=== PATIENT | female | born 1930 | race Caucasian/White ===

== ENCOUNTER 2021-07-16 10:38 | Inpatient (IN) ==
--- NOTE | 2021-07-16 10:48 | Emergency Department Note ---
Impression & Plan Cystitis, Lower extremity edema, Ambulatory dysfunction ED Provider Note NAME: PREMA ELY AGE: 89 SEX: F : 1930 ARRIVES VIA: Ambulance INFORMANT: Patient, ED PROVIDER(S): Salo Hathaway MD Chief Complaint: Shortness of breath, weakness HPI: Patient does present from home and ultimately primary care physician's office due to concern for worsening shortness of breath weakness and ambulatory dysfunction. The patient does live with her daughter who is present at bedside states that she lived there for approximately 2 to 3 years but that her ambulation is gotten worse with associated lower extremity swelling. The patient has complained of shortness of breath. Patient has decreased exercise tolerance and the patient has had some cough with laying flat. No known history of heart or lung disease. Patient is a non-smoker. Patient is vaccinated for Covid. Patient has not reportedly complained of any chest pains or abdominal pain. The patient has had a history of incontinence. Patient has not had any reported fevers chills or vomiting. Patient has been compliant with medications. The patient was seen in the outpatient setting is referred here for further evaluation treatment. ROS: See HPI for pertinent positives and negatives. A total of 10 systems were reviewed and otherwise negative. Past medical history: See below Surgical history: See below Social history: See below Physical Exam: GENERAL: Hard of hearing,NAD, [wearing a mask,] non-toxic. EYE EXAM: Normal conjunctiva. PERRL, no anisocoria and EOM's grossly intact w/o pain. NECK: Supple, no nuchal rigidity, no adenopathy, non-tender. No signs of meningismus. LUNGS: Bibasilar crackles noted. Normal chest wall mechanics. HEART: NSR, no MRG. ABDOMEN: Abdomen soft, non-tender, normo-active bowel sounds, no masses, no rebound or guarding. BACK: No CVA TTP. SKIN: Excoriated skin to the abdomen buttocks and stage I to stage II ulcerations the buttock area. UPPER EXTREMITIES: Upper extremities are grossly normal. LOWER EXTREMITIES: Left greater than right lower extremity edema. NEURO EXAM: A&O x3, cranial nerves II-XII grossly intact, normal speech, moves all 4 extremities on command w/o issue. Differential diagnoses: Infection, dehydration, metabolic abnormality, hypo/hyperglycemia, electrolyte disturbance, anemia, hypoxia, cardiac sources, intracerebral event, toxicologic, neurologic, as well as other pathologies. Course: Patient was seen and evaluated the bedside. Full history physical exam was p erformed. [EKG interpreted by me] Normal sinus rhythm, rate of 100, wide QRS, left bundle branch block pattern. Left axis deviation, no obvious sgarbossa criteria. Imaging Studies: See Below [Cardiac monitoring: An order was placed for continuous cardiac monitoring. The monitor shows a rate of 94 with sinus rhythm.] MDM: Patient was seen due to concern for ambulatory dysfunction and lower extremity edema with associated shortness of breath. Blood work was obtained. Patient has a normal white count H&H and platelet count. Kidney function is unremarkable. The patient's BNP and troponin not elevated. TSH is normal. Urinalysis does appear to be positive for infection. Covid negative. DVT ultrasound is negative. Asymmetric right lung opacities are seen on chest x-ray. Patient was treated with Rocephin. I did speak with the on-call hospitalist and the patient was admitted to the medicine service. Past Med/Surg History Medical History Acquired valgus deformity of knee Ambulatory dysfunction Lower extremity edema Neuropathy Osteoarthritis of knees, bilateral Primary hypertension Surgical History S/P appendectomy S/P cholecystectomy S/P hysterectomy Family History Other Cancer Social History Smoking Status: Never smoker Second Hand Exposure: Yes; Hx Alcohol Use: No Hx Substance Use: No marital status: / Current Living Situation: Family Feels Safe at Home: Yes Dental Care, Regularly: No Seatbelt Use: always Allergies Allergies Allergy/AdvReac Type Severity Reaction Status Date / Time lisinopril Allergy Mild cough Verified 07/16/21 13:36 Home Meds Home Medications Medication Instructions Recorded Confirmed aspirin 81 mg tablet,delayed 81 mg PO QAM 07/16/21 07/16/21 release (Adult Low Dose Aspirin) atenolol 50 mg tablet 50 mg PO QAM 07/16/21 07/16/21 calcium carbonate 500 mg calcium 500 mg PO QAM 07/16/21 07/16/21 (1,250 mg) tablet (Calcium 500) Results & Data (ED) Vital Signs Vital Signs - 24 hr 07/16/21 10:47 07/16/21 10:49 07/16/21 11:00 Temperature 36.7 C Temperature Source Oral Pulse Rate 99 H 95 H 99 H Pulse Rate [Apical] 99 H Pulse Rate from SpO2 Sensor 93 H 98 H Respiratory Rate 15 22 23 Respiratory Effort / Characteristics Non-Labored Spontaneous Respiratory Depth Normal Respiratory Pattern Regular Blood Pressure 180/106 H 175/99 H Blood Pressure [Right Arm] 175/99 H Blood Pressure Mean 130 124 Blood Pressure Mean [Right Arm] 124 Pulse Oximetry 95 96 95 Oxygen Delivery Method Room Air Sepsis Recent Fever Within 48 Hours No Sepsis New/Unexplained Change in Mental Status No Sepsis Action Taken by Nursing No Action Required 07/16/21 11:09 07/16/21 13:14 07/16/21 14:36 Temperature Temperature Source Pulse Rate 102 H Pulse Rate [Apical] 89 83 Pulse Rate from SpO2 Sensor Respiratory Rate 22 18 20 Respiratory Effort / Characteristics Respiratory Depth Respiratory Pattern Blood Pressure Blood Pressure [Right Arm] 165/87 H 163/83 H Blood Pressure Mean Blood Pressure Mean [Right Arm] 113 109 Pulse Oximetry 95 95 95 Oxygen Delivery Method Room Air Room Air Room Air Sepsis Recent Fever Within 48 Hours Sepsis New/Unexplained Change in Mental Status Sepsis Action Taken by [facility] Medications Current Medication List: was personally reviewed by me Laboratory Data Attestation: I reviewed the patient's lab results. Result diagrams: 07/16/21 11:19 07/16/21 11:19 Lab Results 07/16/21 07/16/21 07/16/21 Range/Units 11:19 11:19 11:20 WBC 8.07 (4.8-10.8) K/uL RBC 4.90 (4.2-5.4) M/uL Hgb 14.6 (12.0-16.0) g/dL Hct 43.4 (37-47) % MCV 88.6 (80-100) fL MCH 29.8 (25-34) pg MCHC 33.6 (32-36) g/dL RDW Std Deviation 42.7 (36.4-46.3) fL RDW Coeff of John Paul 13.1 (11.5-14.5) % Plt Count 202 (130-400) K/uL MPV 10.2 (7.4-10.4) fL Immature Gran % (Auto) 0.2 % Neut % (Auto) 77.2 % Lymph % (Auto) 13.4 % Hopkins % (Auto) 8.2 % Eos % (Auto) 0.9 % Baso % (Auto) 0.1 % Neut # (Auto) 6.23 (1.4-6.5) K/uL Lymph # (Auto) 1.08 L (1.2-3.4) K/uL Hopkins # (Auto) 0.66 H (0.11-0.59) K/uL Eos # (Auto) 0.07 (0-0.5) K/uL Baso # (Auto) 0.01 (0-0.2) K/uL Immature Gran # (Auto) 0.02 (0.00-0.02) K/uL Sodium 138 (136-145) mmol/L Potassium 4.0 (3.5-5.1) mmol/L Chloride 107 (98-107) mmol/L Carbon Dioxide 24 (21-32) mmol/L Anion Gap 8.0 (3-11) BUN 11 (7-18) mg/dl Creatinine 0.70 (0.6-1.2) mg/dl Est Cr Clr Drug Dosing 66.2 ml/min Est GFR ( Amer) 89.0 ml/min Est GFR (Non-Af Amer) 76.8 ml/min BUN/Creatinine Ratio 15.8 (10-20) Glucose 102 H (70-99) mg/dl Calcium 9.1 (8.5-10.1) mg/dl Magnesium 2.2 (1.8-2.4) mg/dl Total Bilirubin 0.8 (0.2-1) mg/dl AST 27 (15-37) U/L ALT 24 (12-78) U/L Alkaline Phosphatase 155 H (45-117) U/L Troponin I < 0.015 (0-0.045) ng/ml NT-Pro-B Natriuret Pep 592 (0-1800) pg/ml Total Protein 8.0 (6.4-8.2) gm/dl Albumin 3.1 L (3.4-5.0) gm/dl Globulin 4.9 H (2.5-4.0) gm/dl Albumin/Globulin Ratio 0.6 L (0.9-2) TSH 1.320 (0.300-4.500) uIu/ml Urine Color Yellow Urine Appearance Clear (Clear) Urine pH 6.5 (4.5-7.5) Ur Specific Robbins 1.008 (1.000-1.030) Urine Protein Negative (Negative) Urine Glucose (UA) Negative (Negative) Urine Ketones Negative (Negative) Urine Blood Negative (Negative) Urine Nitrite Positive A (Negative) Urine Bilirubin Negative (Negative) Urine Urobilinogen Negative (Negative) Ur Leukocyte Esterase Trace H (Negative) Urine WBC (Auto) 5-10 H (0-5) /hpf Urine RBC (Auto) 0-4 (0-4) /hpf U Hyaline Cast (Auto) 1-5 (0-5) /lpf U Epithel Cells (Auto) 10-20 H (0-5) /lpf Urine Bacteria (Auto) 2+ H (Negative) SARS-CoV-2, RNA, NAAT (NEGATIVE) 07/16/21 Range/Units 11:30 WBC (4.8-10.8) K/uL RBC (4.2-5.4) M/uL Hgb (12.0-16.0) g/dL Hct (37-47) % MCV (80-100) fL MCH (25-34) pg MCHC (32-36) g/dL RDW Std Deviation (36.4-46.3) fL RDW Coeff of John Paul (11.5-14.5) % Plt Count (130-400) K/uL MPV (7.4-10.4) fL Immature Gran % (Auto) % Neut % (Auto) % Lymph % (Auto) % Hopkins % (Auto) % Eos % (Auto) % Baso % (Auto) % Neut # (Auto) (1.4-6.5) K/uL Lymph # (Auto) (1.2-3.4) K/uL Hopkins # (Auto) (0.11-0.59) K/uL Eos # (Auto) (0-0.5) K/uL Baso # (Auto) (0-0.2) K/uL Immature Gran # (Auto) (0.00-0.02) K/uL Sodium (136-145) mmol/L Potassium (3.5-5.1) mmol/L Chloride (98-107) mmol/L Carbon Dioxide (21-32) mmol/L Anion Gap (3-11) BUN (7-18) mg/dl Creatinine (0.6-1.2) mg/dl Est Cr Clr Drug Dosing ml/min Est GFR ( Amer) ml/min Est GFR (Non-Af Amer) ml/min BUN/Creatinine Ratio (10-20) Glucose (70-99) mg/dl Calcium (8.5-10.1) mg/dl Magnesium (1.8-2.4) mg/dl Total Bilirubin (0.2-1) mg/dl AST (15-37) U/L ALT (12-78) U/L Alkaline Phosphatase (45-117) U/L Troponin I (0-0.045) ng/ml NT-Pro-B Natriuret Pep (0-1800) pg/ml Total Protein (6.4-8.2) gm/dl Albumin (3.4-5.0) gm/dl Globulin (2.5-4.0) gm/dl Albumin/Globulin Ratio (0.9-2) TSH (0.300-4.500) uIu/ml Urine Color Urine Appearance (Clear) Urine pH (4.5-7.5) Ur Specific Robbins (1.000-1.030) Urine Protein (Negative) Urine Glucose (UA) (Negative) Urine Ketones (Negative) Urine Blood (Negative) Urine Nitrite (Negative) Urine Bilirubin (Negative) Urine Urobilinogen (Negative) Ur Leukocyte Esterase (Negative) Urine WBC (Auto) (0-5) /hpf Urine RBC (Auto) (0-4) /hpf U Hyaline Cast (Auto) (0-5) /lpf U Epithel Cells (Auto) (0-5) /lpf Urine Bacteria (Auto) (Negative) SARS-CoV-2, RNA, NAAT NEGATIVE (NEGATIVE) Administered Medications Discontinued Medications Ceftriaxone Sodium (Rocephin) 2,000 mg in 70 mls @ 140 mls/hr IV NOW STA Stop: 07/16/21 13:24 Last Infusion: 07/16/21 13:46 Dose: 0 mls/hr Documented by: [id number] Admin: 07/16/21 13:13 Dose: 140 mls/hr Documented by: [id number] Imaging Data Radiologist's Impression: Chest X-Ray 07/16/21 10:58 XR chest 1V portable CLINICAL HISTORY: weakness COMPARISON STUDY: No previous studies for comparison. FINDINGS: Lung volumes are normal. There is no pneumothorax or pleural effusion. Note is made of mild cardiomegaly without evidence for pulmonary edema. There are apparent mild asymmetric opacities within the right lung. IMPRESSION: Apparent mild asymmetric right lung opacities. An infectious process cannot be excluded. Radiographic follow-up is recommended. ACT 112: Negative or not required by law. Electronically signed by: Arnold Meraz M.D. 07/16/2021 11:44 AM Venous Doppler Study 07/16/21 10:58 US venous doppler LE LT CLINICAL HISTORY: L>R LE edema COMPARISON: None available at the time of this dictation. TECHNIQUE: Bilateral lower extremity real-time compression venous ultrasound with Color Doppler imaging. Utilizing real-time ultrasonic imaging multiple real time high-resolution ultrasonic images with compression and noncompression maneuvers of the deep venous system in addition to color doppler imaging were performed from the common femoral vein through the proximal calf veins. FINDINGS: Currently there is normal compressibility of the deep venous system from the common femoral vein through the proximal calf veins. No current evidence of acute thrombosis is identified. Impression: No evidence of deep venous thrombus. ACT 112: Negative or not required by law. Electronically signed by: Mike Morales M.D. 07/16/2021 12:12 PM Discharge Plan Visit Data Chief Complaint: Cardiac Assessment ED Provider: Salo Hathaway Discharge Problem: Cystitis, Lower extremity edema, Ambulatory dysfunction Forms Stand Alone Forms: [facility] [email or web address] Prescriptions Prescriptions: No Action atenolol 50 mg tablet 50 mg PO QAM RF: 0 aspirin [Adult Low Dose Aspirin] 81 mg tablet,delayed release (DR/EC) 81 mg PO QAM RF: 0 calcium carbonate [Calcium 500] 500 mg calcium (1,250 mg) tablet 500 mg PO QAM RF: 0 Referrals Referrals: Francisca Bellamy MD [Primary Care Provider] -
[2021-07-16 11:32] LABS: Basophils # (auto) 0.01 K/uL (0-0.2); Basophils % (auto) 0.1 %; Eosinophils # (auto) 0.07 K/uL (0-0.5); Eosinophils % (auto) 0.9 %; Hematocrit (blood only) 43.4 % (37-47); Hemoglobin 14.6 g/dL (12.0-16.0); Immature Granulocytes # (auto) 0.02 K/uL (0.00-0.02); Immature Granulocytes % (auto) 0.2 %; Lymphocytes # (auto) 1.08 K/uL (1.2-3.4); Lymphocytes % (auto) 13.4 %; Mean Corpuscular Hemoglobin 29.8 pg (25-34); Mean Corpuscular Hgb Conc 33.6 g/dL (32-36); Mean Corpuscular Volume 88.6 fL (80-100); Mean Platelet Volume 10.2 fL (7.4-10.4); Monocytes # (auto) 0.66 K/uL (0.11-0.59); Monocytes % (auto) 8.2 %; Neutrophils # (auto) 6.23 K/uL (1.4-6.5); Neutrophils % (auto) 77.2 %; Platelet Count 202 K/uL (130-400); RDW Coefficient of Variation 13.1 % (11.5-14.5); RDW Standard Deviation 42.7 fL (36.4-46.3); White Blood Count 8.07 K/uL (4.8-10.8)
--- NOTE | 2021-07-16 11:45 | XRay Report ---
XR chest 1V portable CLINICAL HISTORY: weakness COMPARISON STUDY: No previous studies for comparison. FINDINGS: Lung volumes are normal. There is no pneumothorax or pleural effusion. Note is made of mild cardiomegaly without evidence for pulmonary edema. There are apparent mild asymmetric opacities with in the right lung. IMPRESSION: Apparent mild asymmetric right lung opacities. An infectious process cannot be excluded. Radiographic follow-up is recommended. ACT 112: Negative or not required by law. Electronically signed by: Arnold Meraz M.D. 07/16/2021 11:44 AM
[2021-07-16 11:49] LABS: Alanine Aminotransferase 24 U/L (12-78); Albumin Level 3.1 gm/dl (3.4-5.0); Aspartate Aminotransferase 27 U/L (15-37); BUN Creatinine Ratio 15.8 (10-20); Blood Urea Nitrogen 11 mg/dl (7-18); Calcium 9.1 mg/dl (8.5-10.1); Carbon Dioxide 24 mmol/L (21-32); Chloride 107 mmol/L (98-107); Creatinine Clr Calc Pharmacy 66.2 ml/min; Est GFR (Non-African American) 76.8 ml/min; Glucose 102 mg/dl (70-99); Magnesium 2.2 mg/dl (1.8-2.4); Sodium 138 mmol/L (136-145)
--- NOTE | 2021-07-16 12:13 | Ultrasound Report ---
US venous doppler LE LT CLINICAL HISTORY: L>R LE edema COMPARISON: None available at the time of this dictation. TECHNIQUE: Bilateral lower extremity real-time compression venous ultrasound with Color Doppler imagi ng. Utilizing real-time ultrasonic imaging multiple real time high-resolution ultrasonic images with comp ression and noncompression maneuvers of the deep venous system in addition to color doppler imaging w ere performed from the common femoral vein through the proximal calf veins. FINDINGS: Currently there is normal compressibility of the deep venous system from the common femoral vein thro ugh the proximal calf veins. No current evidence of acute thrombosis is identified. Impression: No evidence of deep venous thrombus. ACT 112: Negative or not required by law. Electronically signed by: Mike Morales M.D. 07/16/2021 12:12 PM
[2021-07-16 12:44] LABS: Albumin Globulin Ratio 0.6 (0.9-2); Alkaline Phosphatase 155 U/L (45-117); Bilirubin,Total 0.8 mg/dl (0.2-1); Globulin 4.9 gm/dl (2.5-4.0); NT Pro B Type Natriuretic Pept 592 pg/ml (0-1800); Troponin I < 0.015 ng/ml (0-0.045)
[2021-07-16 12:46] LABS: Appearance Urine Clear (Clear); Bacteria Urine Automated 2+ (Negative); Bilirubin Urine Negative (Negative); Blood Urine Negative (Negative); Color Urine Yellow; Glucose Urine UA Negative (Negative); Ketones Urine Negative (Negative); Leukocyte Esterase Urine Trace (Negative); Nitrite Urine Positive (Negative); Protein Urine Negative (Negative); RBC Urine Automated 0-4 /hpf (0-4); Specific Gravity Urine 1.008 (1.000-1.030); Urobilinogen Urine Negative (Negative); pH Urine 6.5 (4.5-7.5)
[2021-07-16] MEDS ORDERED: cefTRIAXone SODIUM 2,000 MG/70 ML BAG IV STA (12:55)
--- NOTE | 2021-07-16 14:29 | Electrocardiogram Report ---
Test Reason : Blood Pressure : / mmHG Vent. Rate : 100 BPM Atrial Rate : 100 BPM P-R Int : 188 ms QRS Dur : 134 ms QT Int : 378 ms P-R-T Axes : 037 -57 071 degrees QTc Int : 487 ms Normal sinus rhythm Possible Left atrial enlargement Left axis deviation Left bundle branch block Abnormal ECG No previous ECGs available Confirmed by Benji Graham ([id number]) on 07/16/2021 2:29:29 PM Referred By: Confirmed By:Ulises Graham
[2021-07-16] MEDS ORDERED: ACETAMINOPHEN 325 MG TAB PO PRN (15:35)
[2021-07-16] MEDS ORDERED: MAGNESIUM HYDROXIDE SUSP 30 ML UDC PO PRN (15:35)
[2021-07-16] MEDS ORDERED: ONDANSETRON INJ 2 MG/ML 2 ML VIAL IV PRN (15:35)
[2021-07-16] MEDS ORDERED: POLYETHYLENE (MIRALAX) 17 GM PACK PO PRN (15:35)
[2021-07-16] MEDS ORDERED: ALUMINUM/MAGNESIUM SUSP 30 ML UDC PO PRN (15:35)
[2021-07-16] MEDS ORDERED: FUROSEMIDE 40 MG/4 ML VIAL IV STA (16:26)
--- NOTE | 2021-07-16 16:33 | History & Physical Report ---
Date of Service July 16, 2021 Assessment & Plan (1) Lower extremity edema: Plan: - ?etiology -- renal fxn WNL, alk phos up slightly but AST/ALT/TB WNL - Obtain 2D Echo - Dose of IV Lasix 20mg x1 - Keep BLE elevated - CXR abnormal - obtain CT chest w/o contrast (2) UTI (urinary tract infection): Plan: - Empiric Rocephin - F/U urine culture (3) Pressure ulcer of buttock, unstageable: Plan: - Wound care consult placed, appreciate assistance - Frequent repositioning (4) Left bundle branch block: Plan: - R/O ACS, serial troponins - Continue ASA - Uncertain if this is new or old, no previous EKG to compare (5) Primary hypertension: Plan: - Resume Atenolol - Monitor BP (6) Ambulatory dysfunction: Plan: - PT/OT eval - Case management consult for d/c planning Plan: Obs Tele Lovenox for DVT ppx F/U labs in AM Code status: DNR/DNI Discussed above plan with patient's daughter Bria. History of Present Illness Chief Complaint: trouble walking, lower extremity edema, wounds on buttocks Primary Care Provider: Francisca Bellamy MD Ms. Kirk is a pleasant 89 yo elderly WF with a pmhx of HTN who presented to the ER today accompanied by her daughter for multiple complaints. Pt's daughter is providing history as the patient has poor insight to her current state. Daughter states that patient is presently living with her and her . Just recently able to establish care with a new PCP and she was taken there this AM. She has essentially lacked medical care since onset of COVID-19 pandemic. Daughter notes that she's had progressively worsening swelling of her bilateral LE over the past 3-6 months. She also admits to increased weight but unable to give a specific number as to increase in pounds. Pt does not lay flat but daughter notes that between transfers and when laying down she seems to be more short of breath. Pt denies chest pain or dyspnea at rest. She has not noticed any urine discoloration or odor and pt denies dysuria. Daughter also notes that the patient sits/lays all day long. She has been having increased difficulty with ambulation due to being "knock-kneed". They just recently discovered wounds on her buttocks and were concerned about how swollen her legs were. Daughter states that her legs were seeping clear discharge as well. Daughter and daughter in law are primary caretakers and are having difficulty providing the level of care that pt is requiring. They are interested in working on placement for the patient but are certainly willing to take her home if she should be discharged prior to finding a facility that can take her. Pt's only known history is HTN, she takes Atenolol. Daughter denies pt history of heart disease, stroke, hyperlipidemia, or NV. ED work up demonstrated normal wbc count, normal renal function, negative trop, and a LBBB on EKG w/o acute ischemic changes. Urine appears grossly infected (nitrite and leukocyte esterase positive) for which she was medicated with a dose of Rocephin. Pt will be hospitalized for further care. Allergies Allergy/AdvReac Type Severity Reaction Status Date / Time lisinopril Allergy Mild cough Verified 07/16/21 13:36 Home Medications Medication Instructions Recorded Confirmed Type aspirin 81 mg tablet,delayed 81 mg PO QAM 07/16/21 07/16/21 History release (Adult Low Dose Aspirin) atenolol 50 mg tablet 50 mg PO QAM 07/16/21 07/16/21 History calcium carbonate 500 mg calcium 500 mg PO QAM 07/16/21 07/16/21 History (1,250 mg) tablet (Calcium 500) Past Med/Surg History Medical History Acquired valgus deformity of knee Ambulatory dysfunction Lower extremity edema Neuropathy Osteoarthritis of knees, bilateral Primary hypertension Surgical History S/P appendectomy S/P cholecystectomy S/P hysterectomy Family History Other Cancer Social History Smoking Status: Never smoker Second Hand Exposure: Yes; Hx Alcohol Use: No Hx Substance Use: No marital status: / Current Living Situation: Family Feels Safe at Home: Yes Dental Care, Regularly: No Seatbelt Use: always Review of Systems Review of Systems: CONSTITUTIONAL: +weight gain, unable to quantify, fever and chills, fatigue, malaise, generalized weakness. HEENT: Denies changes in vision and hearing. RESPIRATORY: +dyspnea & cough with laying flat/transfers, Denies wheezing. CV: +LE edema. ?orthopnea. Denies palpitations, CP, PND. GI: Denies abdominal pain, nausea, vomiting and diarrhea. : Denies dysuria and urinary frequency, urgency, hesitancy. MUSCULOSKELETAL: Denies myalgia and joint pain. SKIN: Wounds on buttocks and rash in groin. NEUROLOGICAL: Denies headache, syncope, focal weakness, numbness, tingling. PSYCHIATRIC: Denies recent changes in mood. Denies anxiety and depression. Physical Exam Physical Exam: GENERAL: 89 yo obese elderly pleasant WF. Poor hygiene. NAD. EYES: EOMI. PERRLA. Anicteric. HENT: Moist mucous membranes. No scleral icterus. No cervical lymphadenopathy. LUNGS: Nonlabored. Bibasilar crackles. CARDIOVASCULAR: Regular rate and rhythm. No M/G/R. No JVD. ABDOMEN: Soft, obese, non-tender and non-distended. Bowel sounds normoactive x 4 quad. : Piña inserted, draining clear yellow urine. EXTREMITIES: +2 pitting edema bilaterally. Non-tender. Peripheral pulses +2/4. NEUROLOGIC: A&O x3. No focal neurological deficits. CN II-XII grossly intact. PSYCHIATRIC: Cooperative. Appropriate mood and affect. SKIN: candidal rash in groin folds. Gluteal wounds noted bilaterally. Results & Data Results & Data ([facility]) Vital Signs (Past 12 Hours) Vital Signs Temp Pulse Pulse Resp BP BP Pulse Ox 07/16/21 14:36 83 20 163/83 H 95 07/16/21 13:14 89 18 165/87 H 95 07/16/21 11:09 102 H 22 95 07/16/21 11:00 99 H 23 175/99 H 95 07/16/21 10:49 36.7 C 95 H 99 H 22 180/106 H 175/99 H 96 07/16/21 10:47 99 H 15 95 Laboratory Results Laboratory Results - last 24 hr 07/16/21 07/16/21 07/16/21 11:19 11:19 11:20 WBC 8.07 RBC 4.90 Hgb 14.6 Hct 43.4 MCV 88.6 MCH 29.8 MCHC 33.6 RDW Std Deviation 42.7 RDW Coeff of [place] 13.1 Plt Count 202 MPV 10.2 Immature Gran % (Auto) 0.2 Neut % (Auto) 77.2 Lymph % (Auto) 13.4 [place] % (Auto) 8.2 Eos % (Auto) 0.9 Baso % (Auto) 0.1 Neut # (Auto) 6.23 Lymph # (Auto) 1.08 L [place] # (Auto) 0.66 H Eos # (Auto) 0.07 Baso # (Auto) 0.01 Immature Gran # (Auto) 0.02 Sodium 138 Potassium 4.0 Chloride 107 Carbon Dioxide 24 Anion Gap 8.0 BUN 11 Creatinine 0.70 Est Cr Clr Drug Dosing 66.2 Est GFR ( Amer) 89.0 Est GFR (Non-Af Amer) 76.8 BUN/Creatinine Ratio 15.8 Glucose 102 H Calcium 9.1 Magnesium 2.2 Total Bilirubin 0.8 AST 27 ALT 24 Alkaline Phosphatase 155 H Troponin I < 0.015 NT-Pro-B Natriuret Pep 592 Total Protein 8.0 Albumin 3.1 L Globulin 4.9 H Albumin/Globulin Ratio 0.6 L TSH 1.320 Urine Color Yellow Urine Appearance Clear Urine pH 6.5 Ur Specific [place] 1.008 Urine Protein Negative Urine Glucose (UA) Negative Urine Ketones Negative Urine Blood Negative Urine Nitrite Positive A Urine Bilirubin Negative Urine Urobilinogen Negative Ur Leukocyte Esterase Trace H Urine WBC (Auto) 5-10 H Urine RBC (Auto) 0-4 U Hyaline Cast (Auto) 1-5 U Epithel Cells (Auto) 10-20 H Urine Bacteria (Auto) 2+ H SARS-CoV-2, RNA, NAAT negative Diagnostic Findings Chest X-Ray 07/16/21 10:58 XR chest 1V portable CLINICAL HISTORY: weakness COMPARISON STUDY: No previous studies for comparison. FINDINGS: Lung volumes are normal. There is no pneumothorax or pleural effusion. Note is made of mild cardiomegaly without evidence for pulmonary edema. There are apparent mild asymmetric opacities within the right lung. IMPRESSION: Apparent mild asymmetric right lung opacities. An infectious process cannot be excluded. Radiographic follow-up is recommended. ACT 112: Negative or not required by law. Electronically signed by: Arnold Meraz M.D. 07/16/2021 11:44 AM Venous Doppler Study 07/16/21 10:58 US venous doppler LE LT CLINICAL HISTORY: L>R LE edema COMPARISON: None available at the time of this dictation. TECHNIQUE: Bilateral lower extremity real-time compression venous ultrasound with Color Doppler imaging. Utilizing real-time ultrasonic imaging multiple real time high-resolution ultrasonic images with compression and noncompression maneuvers of the deep venous system in addition to color doppler imaging were performed from the common femoral vein through the proximal calf veins. FINDINGS: Currently there is normal compressibility of the deep venous system from the common femoral vein through the proximal calf veins. No current evidence of acute thrombosis is identified. Impression: No evidence of deep venous thrombus. ACT 112: Negative or not required by law. Electronically signed by: Mike Morales M.D. 07/16/2021 12:12 PM ECG Additional Comments: NSR, LBBB, Left axis deviation Code Status & VTE Plan Code Status DNR/DNI VTE Prophylaxis Plan VTE Prophylaxis will be ordered: Yes Supervising Physician Co-Signing Physician Notes Attending note: patient seen and examined with Claritza FELDMAN. I agree with her assessment and plan, history, ROS, examination. I have reviewed the labs and imaging. patient is pleasant, resting in bed, daughter at the bedside discussed plan with them, all questions answered - Lower extremity edema: appears to be lymphedema plus some edema, per daughter legs have been swollen for years, more recently worse check echo, no proteinuria, see how she responds to Lasix - LBBB: unsure if old or new, no complaints of chest pain, observe on tele, cycle troponin, echo - Buttocks wounds: consult wound care will need PT/OT, family unsure if they can care for her at home, consult CM PG Care Time/CCT Total # of Minutes Spent Total Time Spent with Patient: Total time spent is greater than 50% in coordination of care (as documented) at patient's floor/unit and/or counseling patient: Coding Level of Care Code New Pt INT OBSERVATION CARE 50M LVL 2 Patient Type New Diagnoses UTI (urinary tract infection) N39.0 Pressure ulcer of buttock, unstageable L89.300 Primary hypertension I10 Ambulatory dysfunction R26.2 Lower extremity edema R60.0 Left bundle branch block I44.7
--- NOTE | 2021-07-16 17:48 | CT Scan Report ---
CT SCAN OF THE CHEST WITHOUT IV CONTRAST CLINICAL HISTORY: Abnormal chest x-ray. Abnormal physical examination findings. COMPARISON STUDY: Chest x-ray dated 07/16/2021. TECHNIQUE: CT scan of the thorax was performed from the thoracic inlet to the upper abdomen. Images are reviewed in the axial, sagittal, and coronal planes. IV contrast was not administered for this ex amination as per the referring clinician. A dose lowering technique was utilized adhering to the [facility] of [place]. The examination is degraded by motion artifact, as well as by streak artifact from the arms which could not be elevated above the chest. CT DOSE: 1092.19 mGy.cm FINDINGS: Thyroid: Normal in size and heterogeneous in attenuation. Thoracic aorta: There is atherosclerotic calcification of the thoracic aorta. There is mild aneurysma l dilatation of the ascending thoracic aorta which measures up to 4.3 cm in diameter. The remainder o f the thoracic aorta is normal in caliber, and the arch demonstrates standard 3-vessel anatomy. Heart: The heart is enlarged and without pericardial effusion. The coronary arteries are densely calc ified. Lungs and pleural spaces: Evaluation of the lung parenchyma is degraded by motion artifact. Scarring/ atelectasis is noted at the lung bases. There is no airspace consolidation typical for pneumonia or p leural effusion. The trachea and central airways are clear. Mediastinum: There is no mediastinal lymphadenopathy. Trista: Not well assessed without IV contrast. Axillae: There is no axillary lymphadenopathy. Upper abdomen: The liver is cirrhotic in morphology and heterogeneous in attenuation. There is hypert rophy of the left lobe and nodularity of the surface contour. 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 A 3.2 cm right adrenal nodule meets criteria for a fat-containing adenoma. Skeletal structures: The skeletal structures are osteopenic. Degenerative change and hyperkyphosis ar e noted in the thoracic spine. Arthritic change is seen in the shoulders. No lytic or blastic bony le sions are seen. IMPRESSION: 1. Cardiomegaly with no acute cardiopulmonary abnormality. 2. There is mild aneurysmal minimal dilatation of the ascending thoracic aorta which measures up to 4 .3 cm in diameter. 3. Cirrhotic liver morphology. 4. Additional findings as above. ACT 112: Negative or not required by law. Electronically signed by: Ash Rutherford M.D. 07/16/2021 5:46 PM
[2021-07-16] MEDS: ENOXAPARIN INJ 60 MG/0.6 ML SYR SQ SCH (19:16)
[2021-07-17] MEDS ORDERED: FUROSEMIDE 40 MG/4 ML VIAL IV ONE (08:37)
[2021-07-17] MEDS: ASPIRIN 81 MG ECTAB PO SCH (09:18)
[2021-07-17] MEDS: CALCIUM CARBONATE 1250MG TAB PO SCH (09:18)
[2021-07-17] MEDS: ATENOLOL 50 MG TABLET PO SCH (09:18)
[2021-07-17 09:25] LABS: Albumin Level 2.7 gm/dl (3.4-5.0); BUN Creatinine Ratio 15.4 (10-20); Calcium 8.9 mg/dl (8.5-10.1); Creatinine Clr Calc Pharmacy 45.9 ml/min; Est GFR (African American) 57.2 ml/min; Est GFR (Non-African American) 49.3 ml/min; Potassium 3.9 mmol/L (3.5-5.1)
[2021-07-17 09:28] LABS: Albumin Globulin Ratio 0.5 (0.9-2); Bilirubin,Total 0.7 mg/dl (0.2-1); Total Protein 7.7 gm/dl (6.4-8.2)
--- NOTE | 2021-07-17 12:23 | XCELERA ---
[id number]
[2021-07-17] MEDS: cefTRIAXone SODIUM 2,000 MG in DEXTROSE 5% 50 ML IV SCH (13:01)
--- NOTE | 2021-07-17 15:25 | Hospitalist Progress Note ---
Date of Service July 17, 2021 Assessment & Plan (1) Lower extremity edema: Plan: Acute on chronic - Suspect mildly worse d/t poor mobility - Given dose of IV Lasix x 2, some improvement in edema noted - Keep elevated - Consider OT eval for lymphedema therapy (2) UTI (urinary tract infection): Plan: - Empiric Rocephin - Prelim culture growing GN organism - Await final C&S and tailor abx accordingly (3) Buttock wound: Plan: - Wounds secondary to excessive moisture - Consult wound care -- appreciate assistance - Clean area/dry thoroughly, apply powder/ointment as directed by wound care (4) Left bundle branch block: Plan: - ACS ruled out, trops negative - Continue ASA - Uncertain if this is new or old, no previous EKG to compare - D/C tele (5) Primary hypertension: Plan: - Resume Atenolol - Monitor BP (6) Ambulatory dysfunction: Plan: - PT/OT eval - Case management consult for d/c planning Plan: Make full admit Lovenox for DVT ppx F/U labs in AM Code status: DNR/DNI Will update patient's daughter, Bria at bedside. Admission and Anticipated Discharge Date Admission Date: July 17, 2021 Subjective Mrs. Kirk seen on rounds this morning. She is resting comfortably in bed and offers no complaints. She is difficult to communicate with as she is [place]. Pt hospitalized yesterday for multiple issues including increasing LE edema, UTI, and wounds on buttocks. No issues verbalized by RN. She was given Lasix y with some response. Additional dose order this AM. Family having a difficult time caring for her at home. Review of Systems Review of Systems: CONSTITUTIONAL: denies fever and chills, fatigue, malaise, generalized weakness. HEENT: Denies changes in vision and hearing. RESPIRATORY: +dyspnea & cough with laying flat/transfers, Denies wheezing. CV: +LE edema. ?orthopnea. Denies palpitations, CP, PND. GI: Denies abdominal pain, nausea, vomiting and diarrhea. : +incontinent. Denies dysuria and urinary frequency, urgency, hesitancy. MUSCULOSKELETAL: Denies myalgia and joint pain. SKIN: Wounds on buttocks and rash in groin. NEUROLOGICAL: Denies headache, syncope, focal weakness, numbness, tingling. PSYCHIATRIC: Denies recent changes in mood. Denies anxiety and depression. Physical Exam Physical Exam: GENERAL: 89 yo obese elderly pleasant WF. Poor hygiene. NAD. EYES: EOMI. PERRLA. Anicteric. HENT: Moist mucous membranes. No scleral icterus. No cervical lymphadenopathy. LUNGS: Nonlabored. Bibasilar crackles. CARDIOVASCULAR: Regular rate and rhythm. No M/G/R. No JVD. ABDOMEN: Soft, obese, non-tender and non-distended. Bowel sounds normoactive x 4 quad. : Piña inserted, draining clear yellow urine. EXTREMITIES: +2 pitting edema bilaterally. Non-tender. Peripheral pulses +2/4. NEUROLOGIC: A&O x3. No focal neurological deficits. CN II-XII grossly intact. PSYCHIATRIC: Cooperative. Appropriate mood and affect. SKIN: candidal rash in groin folds. Gluteal wounds noted bilaterally. Results & Data Results & Data ([facility]) Vital Signs (Past 12 Hours) Vital Signs Temp Pulse Pulse Resp BP Pulse Ox 07/17/21 15:12 37.4 C 69 18 124/65 92 07/17/21 11:12 36.5 C 71 18 126/65 94 07/17/21 08:09 96 H 07/17/21 07:36 36.9 C 95 H 20 145/70 H 93 07/17/21 03:25 36.7 C 120 H 22 94 Laboratory Results 07/16/21 11:19 07/17/21 08:[address] 07/16/21 16:33 CT SCAN OF THE CHEST WITHOUT IV CONTRAST CLINICAL HISTORY: Abnormal chest x-ray. Abnormal physical examination findings. COMPARISON STUDY: Chest x-ray dated 07/16/2021. TECHNIQUE: CT scan of the thorax was performed from the thoracic inlet to the upper abdomen. Images are reviewed in the axial, sagittal, and coronal planes. IV contrast was not administered for this examination as per the referring clinician. A dose lowering technique was utilized adhering to the principles of [place]. The examination is degraded by motion artifact, as well as by streak artifact from the arms which could not be elevated above the chest. CT DOSE: 1092.19 mGy.cm FINDINGS: Thyroid: Normal in size and heterogeneous in attenuation. Thoracic aorta: There is atherosclerotic calcification of the thoracic aorta. There is mild aneurysmal dilatation of the ascending thoracic aorta which measures up to 4.3 cm in diameter. The remainder of the thoracic aorta is normal in caliber, and the arch demonstrates standard 3-vessel anatomy. Heart: The heart is enlarged and without pericardial effusion. The coronary arteries are densely calcified. Lungs and pleural spaces: Evaluation of the lung parenchyma is degraded by motion artifact. Scarring/atelectasis is noted at the lung bases. There is no airspace consolidation typical for pneumonia or pleural effusion. The trachea and central airways are clear. Mediastinum: There is no mediastinal lymphadenopathy. Trista: Not well assessed without IV contrast. Axillae: There is no axillary lymphadenopathy. Upper abdomen: The liver is cirrhotic in morphology and heterogeneous in attenuation. There is hypertrophy of the left lobe and nodularity of the surface contour. 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 A 3.2 cm right adrenal nodule meets criteria for a fat-containing adenoma. Skeletal structures: The skeletal structures are osteopenic. Degenerative change and hyperkyphosis are noted in the thoracic spine. Arthritic change is seen in the shoulders. No lytic or blastic bony lesions are seen. IMPRESSION: 1. Cardiomegaly with no acute cardiopulmonary abnormality. 2. There is mild aneurysmal minimal dilatation of the ascending thoracic aorta which measures up to 4.3 cm in diameter. 3. Cirrhotic liver morphology. 4. Additional findings as above. ACT 112: Negative or not required by law. Electronically signed by: Ash Rutherford M.D. 07/16/2021 5:46 PM PG Care Time/CCT Total # of Minutes Spent Total Time Spent with Patient: Total time spent is greater than 50% in coordination of care (as documented) at patient's floor/unit and/or counseling patient: Coding Level of Care Code 37622 Subseq Hosp Care Lvl 2 Diagnoses Lower extremity edema R60.0 UTI (urinary tract infection) N39.0 Left bundle branch block I44.7 Primary hypertension I10 Ambulatory dysfunction R26.2 Buttock wound S31.809A
[2021-07-17] MEDS: ENOXAPARIN INJ 60 MG/0.6 ML SYR SQ SCH (17:06)
[2021-07-17] MEDS: MICONAZOLE NITRATE POWDER 43 GM EXT PRN (23:17)
[2021-07-18 08:15] LABS: Albumin Level 2.5 gm/dl (3.4-5.0); BUN Creatinine Ratio 30.5 (10-20); Calcium 8.6 mg/dl (8.5-10.1); Creatinine Clr Calc Pharmacy 53.9 ml/min; Est GFR (African American) 69.4 ml/min; Est GFR (Non-African American) 59.9 ml/min; Potassium 3.5 mmol/L (3.5-5.1)
[2021-07-18 08:18] LABS: Albumin Globulin Ratio 0.6 (0.9-2); Bilirubin,Total 0.7 mg/dl (0.2-1); Globulin 4.3 gm/dl (2.5-4.0); Total Protein 6.8 gm/dl (6.4-8.2)
[2021-07-18] MEDS: CALCIUM CARBONATE 1250MG TAB PO SCH (09:35)
[2021-07-18] MEDS: ASPIRIN 81 MG ECTAB PO SCH (09:35)
[2021-07-18] MEDS: ATENOLOL 50 MG TABLET PO SCH (09:35)
--- NOTE | 2021-07-18 10:44 | Hospitalist Progress Note ---
Date of Service July 18, 2021 Assessment & Plan (1) Lower extremity edema: Plan: Acute on chronic - Suspect mildly worse d/t poor mobility - Given dose of IV Lasix x 2, some improvement in edema noted - Keep elevated - Consider OT eval for lymphedema therapy (2) UTI (urinary tract infection): Plan: - E. coli with sensitivities to all except Ampicillin - Continue Rocephin - Uncomplicated, subsequently 3-5 days of treatment is sufficient (3) Buttock wound: Plan: - Wounds secondary to excessive moisture - Consult wound care -- appreciate assistance - Clean area/dry thoroughly, apply powder/ointment as directed by wound care (4) Left bundle branch block: Plan: - ACS ruled out, trops negative - Continue ASA - Uncertain if this is new or old, no previous EKG to compare - D/C tele (5) Primary hypertension: Plan: - Continue Atenolol - Monitor BP (6) Ambulatory dysfunction: Plan: - PT/OT eval - Case management consulted for d/c planning - Therapy recommending SNF Plan: Lovenox for DVT ppx F/U labs in AM D/C barber Code status: DNR/DNI Will update patient's daughter, Bria. Admission and Anticipated Discharge Date Admission Date: July 17, 2021 [address]ive Mrs. Kirk seen on rounds this morning. She is resting comfortably in bed and offers no complaints. She is difficult to communicate with as she is [place]. Pt hospitalized yesterday for multiple issues including increasing LE edema, UTI, and wounds on buttocks. No issues verbalized by RN. Family having a difficult time caring for her at home, case management on board. Review of Systems Review of Systems: CONSTITUTIONAL: denies fever and chills, fatigue, malaise, generalized weakness. HEENT: Denies changes in vision and hearing. RESPIRATORY: Denies SOB at rest, cough, wheezing. CV: +LE edema (chronic). Denies palpitations, CP, PND. GI: Denies abdominal pain, nausea, vomiting and diarrhea. : +incontinent. Denies dysuria and urinary frequency, urgency, hesitancy. MUSCULOSKELETAL: Denies myalgia and joint pain. SKIN: Wounds on buttocks and rash in groin. NEUROLOGICAL: Denies headache, syncope, focal weakness, numbness, tingling. PSYCHIATRIC: Denies recent changes in mood. Denies anxiety and depression. Physical Exam Physical Exam: GENERAL: 89 yo obese elderly pleasant WF. Poor hygiene. NAD. LUNGS: Nonlabored. No JVD. Fine bibasilar crackles. CARDIOVASCULAR: Regular rate and rhythm. No M/G/R. No JVD. ABDOMEN: Soft, obese, non-tender and non-distended. Bowel sounds normoactive x 4 quad. : Barber inserted, draining clear yellow urine. EXTREMITIES: +2 pitting edema bilaterally. Non-tender. Peripheral pulses +2/4. NEUROLOGIC: A&O x3. PSYCHIATRIC: Cooperative. Appropriate mood and affect. SKIN: candidal rash in groin folds. Gluteal wounds noted bilaterally. dry/flaking skin noted on hairline/around eyebrows c/w seborrheic dermatitis. Results & Data Results & Data ([facility]) Vital Signs (Past 12 Hours) Vital Signs Temp Pulse Resp BP Pulse Ox 07/18/21 07:00 36.4 C L 63 18 150/74 H 95 07/17/21 22:55 36.5 C 68 20 172/73 H 93 Laboratory Results 07/16/21 11:19 07/18/21 07:36 Diagnostic Findings Echocardiogram 07/17/21 LV systolic function is normal. There is mild concentric LVH Borderline left atrial enlargement There is mild to moderate mitral annular calcification RVSP elevated at 30-40 mmHg PG Care Time/CCT Total # of Minutes Spent Total Time Spent with Patient: Total time spent is greater than 50% in coordination of care (as documented) at patient's floor/unit and/or counseling patient: Coding Level of Care Code 59648 Subseq Hosp Care Lvl 2 Diagnoses Lower extremity edema R60.0 UTI (urinary tract infection) N39.0 Buttock wound S31.809A Left bundle branch block I44.7 Primary hypertension I10 Ambulatory dysfunction R26.2
[2021-07-18] MEDS: cefTRIAXone SODIUM 2,000 MG in DEXTROSE 5% 50 ML IV SCH (12:29)
[2021-07-18] MEDS: ENOXAPARIN INJ 60 MG/0.6 ML SYR SQ SCH (17:23)
[2021-07-19] MEDS: CALCIUM CARBONATE 1250MG TAB PO SCH (08:13)
[2021-07-19] MEDS: ATENOLOL 50 MG TABLET PO SCH (08:13)
[2021-07-19] MEDS: ASPIRIN 81 MG ECTAB PO SCH (08:14)
--- NOTE | 2021-07-19 09:00 | Hospitalist Progress Note ---
Date of Service July 19, 2021 Assessment & Plan (1) Lower extremity edema: Plan: Acute on chronic - Suspect mildly worse d/t poor mobility - Given dose of IV Lasix x 2, some improvement in edema noted - Keep elevated - Consider OT eval for lymphedema therapy (2) UTI (urinary tract infection): Plan: - E. coli with sensitivities to all except Ampicillin - Continue Rocephin - Uncomplicated, subsequently 3-5 days of treatment is sufficient (3) Buttock wound: Plan: - Wounds secondary to excessive moisture - Consult wound care -- appreciate assistance - Clean area/dry thoroughly, apply powder/ointment as directed by wound care (4) Left bundle branch block: Plan: - ACS ruled out, trops negative - Continue ASA - Uncertain if this is new or old, no previous EKG to compare (5) Primary hypertension: Plan: - Currently on Atenolol which was held this AM d/t bradycardia - Monitor HR and BP. If HR improves later this AM or early afternoon, can give Atenolol at that time - If HR remains 50s-60s may need to consider changing Atenolol to MOLLY or ARB (6) Ambulatory dysfunction: Plan: - Continue PT/OT - Case management consulted for d/c planning - Therapy recommending SNF Plan: Lovenox for DVT ppx No labs needed at present as pt is stable w/o acute issues Code status: DNR/DNI Will continue to update patient's daughter, Bria. Admission and Anticipated Discharge Date Admission Date: July 17, 2021 [address] Mrs. Kirk seen on rounds this morning. She is resting comfortably in bed and offers no complaints. She is difficult to communicate with as she is [place]. Pt hospitalized yesterday for multiple issues including increasing LE edema, UTI, and wounds on buttocks. Family having a difficult time caring for her at home, case management on board, referral sent to [facility]. Pt is vaccinated. Piña removed yesterday and she is voiding without issue. Her RN noted this AM that her Atenolol was held d/t HR of 54. Review of Systems Review of Systems: CONSTITUTIONAL: denies fever and chills, fatigue, malaise, generalized weakness. HEENT: Denies changes in vision and hearing. RESPIRATORY: Denies SOB at rest, cough, wheezing. CV: +LE edema (chronic). Denies palpitations, CP, PND. GI: Denies abdominal pain, nausea, vomiting and diarrhea. : +incontinent. Denies dysuria and urinary frequency, urgency, hesitancy. MUSCULOSKELETAL: Denies myalgia and joint pain. SKIN: Wounds on buttocks and rash in groin. NEUROLOGICAL: Denies headache, syncope, focal weakness, numbness, tingling. PSYCHIATRIC: Denies recent changes in mood. Denies anxiety and depression. Physical Exam Physical Exam: GENERAL: 89 yo obese elderly pleasant WF. Poor hygiene. NAD. LUNGS: Nonlabored. No JVD. Fine bibasilar crackles. CARDIOVASCULAR: Regular rate and rhythm. No M/G/R. No JVD. ABDOMEN: Soft, obese, non-tender and non-distended. Bowel sounds normoactive x 4 quad. EXTREMITIES: +2 pitting edema bilaterally. Non-tender. Peripheral pulses +2/4. NEUROLOGIC: A&O x3. PSYCHIATRIC: Cooperative. Appropriate mood and affect. SKIN: candidal rash in groin folds. Gluteal wounds noted bilaterally. dry/flaking skin noted on hairline/around eyebrows c/w seborrheic dermatitis. Results & Data Results & Data ([facility]) Vital Signs (Past 12 Hours) Vital Signs Temp Pulse Resp BP BP Pulse Ox 07/19/21 07:23 36.9 C 54 L 18 167/84 H 91 07/18/21 23:00 37.4 C 63 20 138/71 92 PG Care Time/CCT Total # of Minutes Spent Total Time Spent with Patient: Total time spent is greater than 50% in coordination of care (as documented) at patient's floor/unit and/or counseling patient: Coding Level of Care Code 89637 Subseq Hosp Care Lvl 2 Diagnoses Lower extremity edema R60.0 UTI (urinary tract infection) N39.0 Buttock wound S31.809A Left bundle branch block I44.7 Primary hypertension I10 Ambulatory dysfunction R26.2
[2021-07-19] MEDS: cefTRIAXone SODIUM 2,000 MG in DEXTROSE 5% 50 ML IV SCH (13:55)
[2021-07-19] MEDS: MICONAZOLE NITRATE POWDER 43 GM EXT PRN (15:10)
[2021-07-19] MEDS: ENOXAPARIN INJ 60 MG/0.6 ML SYR SQ SCH (17:49)
[2021-07-20] MEDS: ATENOLOL 50 MG TABLET PO SCH (07:58)
[2021-07-20] MEDS: ASPIRIN 81 MG ECTAB PO SCH (07:58)
[2021-07-20] MEDS: CALCIUM CARBONATE 1250MG TAB PO SCH (10:52)
--- NOTE | 2021-07-20 16:27 | Hospitalist Progress Note ---
Date of Service July 20, 2021 Assessment & Plan (1) Lower extremity edema: Plan: Acute on chronic - Suspect mildly worse d/t poor mobility - Given dose of IV Lasix x 2, some improvement in edema noted - Keep elevated - Consider OT eval for lymphedema therapy (2) UTI (urinary tract infection): Plan: - E. coli with sensitivities to all except Ampicillin - Continue Rocephin - Uncomplicated, completed 4 days of Rocephin (3) Buttock wound: Plan: - Wounds secondary to excessive moisture - Consult wound care -- appreciate assistance - Clean area/dry thoroughly, apply powder/ointment as directed by wound care (4) Left bundle branch block: Plan: - ACS ruled out, trops negative - Continue ASA - Uncertain if this is new or old, no previous EKG to compare (5) Primary hypertension: Plan: - Currently on Atenolol which was held this AM d/t bradycardia - Monitor HR and BP. If HR improves later this AM or early afternoon, can give Atenolol at that time - If HR remains 50s-60s may need to consider changing Atenolol to MOLLY or ARB (6) Ambulatory dysfunction: Plan: - Continue PT/OT - Case management consulted for d/c planning - Therapy recommending SNF Plan: Lovenox for DVT ppx No labs needed at present as pt is stable w/o acute issues Code status: DNR/DNI Spoke with daughter and Bria VERA. Explained that since [facility] has no beds, will have to begin reaching out to other facilities outside of the area. Wherever can take her first is where she will have to go. They can look at transferring to [facility] at later time when a bed becomes available. Made CM aware. They will begin sending referrals on Friday. Admission and Anticipated Discharge Date Admission Date: July 17, 2021 [address] Mrs. Kirk seen on rounds this morning. She is resting comfortably in bed and offers no complaints. She is difficult to communicate with as she is [place]. Pt hospitalized yesterday for multiple issues including increasing LE edema, UTI, and wounds on buttocks. Family having a difficult time caring for her at home, case management on board, referral sent to [facility]. Pt is vaccinated. At this point, no beds available at [facility] and don't anticipate anything over the weekend. Daughter states she cannot safely take her home. No issues verbalized by nursing staff. Review of Systems Review of Systems: CONSTITUTIONAL: denies fever and chills, fatigue, malaise, generalized weakness. HEENT: Denies changes in vision and hearing. RESPIRATORY: Denies SOB at rest, cough, wheezing. CV: +LE edema (chronic). Denies palpitations, CP, PND. GI: Denies abdominal pain, nausea, vomiting and diarrhea. : +incontinent. Denies dysuria and urinary frequency, urgency, hesitancy. MUSCULOSKELETAL: Denies myalgia and joint pain. SKIN: Wounds on buttocks and rash in groin. NEUROLOGICAL: Denies headache, syncope, focal weakness, numbness, tingling. PSYCHIATRIC: Denies recent changes in mood. Denies anxiety and depression. Physical Exam Physical Exam: GENERAL: 89 yo obese elderly pleasant WF. Poor hygiene. NAD. LUNGS: Nonlabored. No JVD. Fine bibasilar crackles. CARDIOVASCULAR: Regular rate and rhythm. No M/G/R. No JVD. ABDOMEN: Soft, obese, non-tender and non-distended. Bowel sounds normoactive x 4 quad. EXTREMITIES: +2 pitting edema bilaterally. Non-tender. Peripheral pulses +2/4. NEUROLOGIC: A&O x3. PSYCHIATRIC: Cooperative. Appropriate mood and affect. SKIN: candidal rash in groin folds. Gluteal wounds noted bilaterally. dry/flaking skin noted on hairline/around eyebrows c/w seborrheic dermatitis. Results & Data Results & Data ([facility]) Vital Signs (Past 12 Hours) Vital Signs Temp Pulse Resp BP Pulse Ox 07/20/21 16:05 36.2 C L 62 16 151/75 H 95 07/20/21 10:56 147/74 H 07/20/21 07:50 36.5 C 95 H 16 190/74 H 95 PG Care Time/CCT Total # of Minutes Spent Total Time Spent with Patient: Total time spent is greater than 50% in coordination of care (as documented) at patient's floor/unit and/or counseling patient: Coding Level of Care Code 85157 Subseq Hosp Care Lvl 1 Diagnoses Lower extremity edema R60.0 UTI (urinary tract infection) N39.0 Buttock wound S31.809A Left bundle branch block I44.7 Primary hypertension I10 Ambulatory dysfunction R26.2
[2021-07-20] MEDS: ENOXAPARIN INJ 60 MG/0.6 ML SYR SQ SCH (18:24)
[2021-07-21] MEDS: ATENOLOL 50 MG TABLET PO SCH (07:52)
[2021-07-21] MEDS: ASPIRIN 81 MG ECTAB PO SCH (07:53)
[2021-07-21] MEDS: CALCIUM CARBONATE 1250MG TAB PO SCH (07:53)
--- NOTE | 2021-07-21 08:24 | Hospitalist Progress Note ---
Date of Service July 21, 2021 Assessment & Plan (1) Lower extremity edema: Plan: Acute on chronic - Suspect mildly worse d/t poor mobility - Given dose of IV Lasix x 2, some improvement in edema noted - Keep elevated - Consider OT eval for lymphedema therapy (2) UTI (urinary tract infection): Plan: - E. coli with sensitivities to all except Ampicillin - Uncomplicated, completed 4 days of Rocephin (3) Buttock wound: Plan: - Wounds secondary to excessive moisture - Consult wound care -- appreciate assistance - Clean area/dry thoroughly, apply powder/ointment as directed by wound care (4) Left bundle branch block: Plan: - ACS ruled out, trops negative - Continue ASA - Uncertain if this is new or old, no previous EKG to compare (5) Primary hypertension: Plan: - Currently on Atenolol which was held this AM d/t bradycardia - Monitor HR and BP. If HR improves later this AM or early afternoon, can give Atenolol at that time - If HR remains 50s-60s may need to consider changing Atenolol to MOLLY or ARB (6) Ambulatory dysfunction: Plan: - Continue PT/OT - Case management consulted for d/c planning - Therapy recommending SNF Plan: Lovenox for DVT ppx No labs needed at present as pt is stable w/o acute issues Code status: DNR/DNI Spoke with daughter and Bria VERA on 07/20. Explained that since [facility] has no beds, will have to begin reaching out to other facilities outside of the area. Wherever can take her first is where she will have to go. They can look at transferring to [facility] at later time when a bed becomes available. Made CM aware. They will begin sending referrals on Friday. Admission and Anticipated Discharge Date Admission Date: July 17, 2021 [address] Mrs[address] Kirk seen on rounds this morning. She is resting comfortably in bed and offers no complaints. She is difficult to communicate with as she is [place]. Pt hospitalized yesterday for multiple issues including increasing LE edema, UTI, and wounds on buttocks. Family having a difficult time caring for her at home, case management on board, referral sent to [facility]. Pt is vaccinated. At this point, no beds available at [facility] and don't anticipate anything over the weekend. Daughter states she cannot safely take her home. Additional referrals to be sent out on Friday by case management. No issues verbalized by nursing staff. Review of Systems Review of Systems: CONSTITUTIONAL: denies fever and chills, fatigue, malaise, generalized weakness. HEENT: Denies changes in vision and hearing. RESPIRATORY: Denies SOB at rest, cough, wheezing. CV: +LE edema (chronic). Denies palpitations, CP, PND. GI: Denies abdominal pain, nausea, vomiting and diarrhea. : +incontinent. Denies dysuria and urinary frequency, urgency, hesitancy. MUSCULOSKELETAL: Denies myalgia and joint pain. SKIN: Wounds on buttocks and rash in groin. NEUROLOGICAL: Denies headache, syncope, focal weakness, numbness, tingling. PSYCHIATRIC: Denies recent changes in mood. Denies anxiety and depression. Physical Exam Physical Exam: GENERAL: 89 yo obese elderly pleasant WF. Poor hygiene. NAD. LUNGS: Nonlabored. No JVD. Fine bibasilar crackles. CARDIOVASCULAR: Regular rate and rhythm. No M/G/R. No JVD. ABDOMEN: Soft, obese, non-tender and non-distended. Bowel sounds normoactive x 4 quad. EXTREMITIES: +2 pitting edema bilaterally. Non-tender. Peripheral pulses +2/4. NEUROLOGIC: A&O x3. PSYCHIATRIC: Cooperative. Appropriate mood and affect. SKIN: candidal rash in groin folds. Gluteal wounds noted bilaterally. dry/flaking skin noted on hairline/around eyebrows c/w seborrheic dermatitis. Results & Data Results & Data ([facility]) Vital Signs (Past 12 Hours) Vital Signs Temp Pulse Resp BP Pulse Ox 07/21/21 07:41 36.6 C 106 H 17 183/76 H 99 07/20/21 23:22 36.6 C 60 18 170/76 H 94 Laboratory Results No labs PG Care Time/CCT Total # of Minutes Spent Total Time Spent with Patient: Total time spent is greater than 50% in coordination of care (as documented) at patient's floor/unit and/or counseling patient: Coding Level of Care Code 34383 Subseq Hosp Care Lvl 1 Diagnoses Lower extremity edema R60.0 UTI (urinary tract infection) N39.0 Buttock wound S31.809A Left bundle branch block I44.7 Primary hypertension I10 Ambulatory dysfunction R26.2
[2021-07-21] MEDS: ENOXAPARIN INJ 60 MG/0.6 ML SYR SQ SCH (17:53)
[2021-07-22] MEDS: ASPIRIN 81 MG ECTAB PO SCH (10:28)
[2021-07-22] MEDS: ATENOLOL 50 MG TABLET PO SCH (10:28)
[2021-07-22] MEDS: CALCIUM CARBONATE 1250MG TAB PO SCH (10:28)
--- NOTE | 2021-07-22 11:31 | Hospitalist Progress Note ---
Date of Service July 22, 2021 Assessment & Plan (1) Lower extremity edema: Plan: Acute on chronic - Suspect mildly worse d/t poor mobility - Given dose of IV Lasix x 2, some improvement in edema noted - Keep elevated - Consider OT eval for lymphedema therapy (2) UTI (urinary tract infection): Plan: - E. coli with sensitivities to all except Ampicillin - Uncomplicated, completed 4 days of Rocephin (3) Buttock wound: Plan: - Wounds secondary to excessive moisture - Consult wound care -- appreciate assistance - Clean area/dry thoroughly, apply powder/ointment as directed by wound care (4) Left bundle branch block: Plan: - ACS ruled out, trops negative - Continue ASA - Uncertain if this is new or old, no previous EKG to compare (5) Primary hypertension: Plan: - Currently on Atenolol which was held this AM d/t bradycardia - Monitor HR and BP. If HR improves later this AM or early afternoon, can give Atenolol at that time - If HR remains 50s-60s may need to consider changing Atenolol to MOLLY or ARB (6) Ambulatory dysfunction: Plan: - Continue PT/OT - Case management consulted for d/c planning - Therapy recommending SNF Plan: Lovenox for DVT ppx No labs needed at present as pt is stable w/o acute issues Code status: DNR/DNI Spoke with daughter and Bria VERA on 07/20. Explained that since [facility] has no beds, will have to begin reaching out to other facilities outside of the area. Wherever can take her first is where she will have to go. They can look at transferring to [facility] at later time when a bed becomes available. Made CM aware. They will begin sending referrals on Friday. Admission and Anticipated Discharge Date Admission Date: July 17, 2021 [address] Mrs[address] Kirk seen on rounds this morning. She is resting comfortably in bed and offers no complaints. She is difficult to communicate with as she is [place]. Pt hospitalized for multiple issues including increasing LE edema, UTI (which has since been treated), and wounds on buttocks. Family having a difficult time caring for her at home, case management on board, referral sent to [facility]. Pt is vaccinated. At this point, no beds available at [facility] and don't anticipate anything over the weekend. Daughter states she cannot safely take her home. Additional referrals to be sent out on Friday by case management. No issues verbalized by nursing staff. Review of Systems Review of Systems: CONSTITUTIONAL: denies fever and chills, fatigue, malaise, generalized weakness. HEENT: Denies changes in vision and hearing. RESPIRATORY: Denies SOB at rest, cough, wheezing. CV: +LE edema (chronic). Denies palpitations, CP, PND. GI: Denies abdominal pain, nausea, vomiting and diarrhea. : +incontinent. Denies dysuria and urinary frequency, urgency, hesitancy. MUSCULOSKELETAL: Denies myalgia and joint pain. SKIN: Wounds on buttocks and rash in groin. NEUROLOGICAL: Denies headache, syncope, focal weakness, numbness, tingling. PSYCHIATRIC: Denies recent changes in mood. Denies anxiety and depression. Physical Exam Physical Exam: GENERAL: 89 yo obese elderly pleasant [place]. Poor hygiene. NAD. LUNGS: Nonlabored. No JVD. Fine bibasilar crackles. CARDIOVASCULAR: Regular rate and rhythm. No M/G/R. No JVD. ABDOMEN: Soft, obese, non-tender and non-distended. Bowel sounds normoactive x 4 quad. EXTREMITIES: +2 pitting edema bilaterally. Non-tender. Peripheral pulses +2/4. NEUROLOGIC: A&O x3. PSYCHIATRIC: Cooperative. Appropriate mood and affect. SKIN: candidal rash in groin folds. Gluteal wounds noted bilaterally. dry/flaki ng skin noted on hairline/around eyebrows c/w seborrheic dermatitis. Results & Data Results & Data ([facility]) Vital Signs (Past 12 Hours) Vital Signs Temp Pulse Resp BP Pulse Ox 07/22/21 07:46 36.4 C L 61 16 169/81 H 96 PG Care Time/CCT Total # of Minutes Spent Total Time Spent with Patient: Total time spent is greater than 50% in coordination of care (as documented) at patient's floor/unit and/or counseling patient: Coding Level of Care Code 15669 Subseq Hosp Care Lvl 1 Diagnoses Lower extremity edema R60.0 UTI (urinary tract infection) N39.0 Buttock wound S31.809A Left bundle branch block I44.7 Primary hypertension I10 Ambulatory dysfunction R26.2
[2021-07-22] MEDS: ENOXAPARIN INJ 60 MG/0.6 ML SYR SQ SCH (18:29)
[2021-07-23] MEDS: ASPIRIN 81 MG ECTAB PO SCH (09:14)
[2021-07-23] MEDS: ATENOLOL 50 MG TABLET PO SCH (09:14)
[2021-07-23] MEDS: CALCIUM CARBONATE 1250MG TAB PO SCH (09:15)
--- NOTE | 2021-07-23 14:26 | XRay Report ---
XR knee RT 1 or 2V routine CLINICAL HISTORY: pain TECHNIQUE: 3 views of the right knee were obtained. Comparison: None available at the time of this dictation. FINDINGS: There is no evidence of an acute fracture. The alignment is anatomic. Severe degenerative changes are seen, greatest in the lateral and patellofemoral compartments. There is likely a suprapatellar effus ion. Soft tissue swelling is seen about the knee. IMPRESSION: Severe degenerative changes in the lateral patellofemoral compartment. There is a likely suprapatella r effusion. ACT 112: Negative or not required by law. Electronically signed by: Duglas Michael M.D. 07/23/2021 2:24 PM
--- NOTE | 2021-07-23 15:52 | Discharge Summary ---
Date of Service July 23, 2021 Admission HPI Per Admitting Provider Ms. Kirk is a pleasant 89 yo elderly WF with a pmhx of HTN who presented to the ER today accompanied by her daughter for multiple complaints. Pt's daughter is providing history as the patient has poor insight to her current state. Daughter states that patient is presently living with her and her . Just recently able to establish care with a new PCP and she was taken there this AM. She has essentially lacked medical care since onset of COVID-19 pandemic. Daughter notes that she's had progressively worsening swelling of her bilateral LE over the past 3-6 months. She also admits to increased weight but unable to give a specific number as to increase in pounds. Pt does not lay flat but daughter notes that between transfers and when laying down she seems to be more short of breath. Pt denies chest pain or dyspnea at rest. She has not noticed any urine discoloration or odor and pt denies dysuria. Daughter also notes that the patient sits/lays all day long. She has been having increased difficulty with a mbulation due to being "knock-kneed". They just recently discovered wounds on her buttocks and were concerned about how swollen her legs were. Daughter states that her legs were seeping clear discharge as well. Daughter and daughter in law are primary caretakers and are having difficulty providing the level of care that pt is requiring. They are interested in working on placement for the patient but are certainly willing to take her home if she should be discharged prior to finding a facility that can take her. Pt's only known history is HTN, she takes Atenolol. Daughter denies pt history of heart disease, stroke, hyperlipidemia, or UT. ED work up demonstrated normal wbc count, normal renal function, negative trop, and a LBBB on EKG w/o acute ischemic changes. Urine appears grossly infected (nitrite and leukocyte esterase positive) for which she was medicated with a dose of Rocephin. Pt will be hospitalized for further care. Principal Diagnosis 1. Lower extremity edemapatient with chronic lymphedema 2. Right knee painsevere OA 3. UTIcompleted full course of antibiotics (E. coli with sensitivity to all except ampicillin) 4. Stage I sacral wound (skin breakdown from excessive moisture and being mostly bedbound) Discharge Exam General: Resting comfortably in her hospital bed. Extremely hard of hearing. Very comfortable but when aroused, complains of severe right knee pain NAD. HEENT: Head is AT/NC buccal mucosa is moist and pink Neck: No JVD. Negative hepatojugular reflex Cardiac: RRR but distant heart sounds Lungs: CTA without W/R/R Abdomen: Normoactive X4. Soft and nontender in all quadrants. Extremities: Vascular changes/lymphedema of the bilateral lower extremities. No true pitting edema. Right knee is extremely tender to touch but appears to have normal range of motion without obvious bony deformities. Seems to have mild effusion on exam Neuro: A&O X4 cranial nerves II through XII are grossly intact no focal neuro deficits but extremely hard of hearing Skin: No obvious skin lesions or rashes Psych: Appropriate affect pleasant and cooperative Discharge Data Allergies Allergy/AdvReac Type Severity Reaction Status Date / Time lisinopril Allergy Mild cough Verified 07/16/21 13:36 Consultations 07/16/21 14:42 ED Decision to Admit Stat Ordered Studies 07/16/21 10:58 US venous doppler LE LT Stat No evidence of DVT in the left lower extremity 07/16/21 16:33 CT chest diagnostic wo con Stat 1. Cardiomegaly without acute cardiopulmonary process 2. 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 Cirrhotic liver morphology X-ray of the right knee: 1. Severe degenerative changes in the lateral patellofemoral compartment with mild suprapatellar effusion Hospital Course (1) Lower extremity edema: Acute on chronic - Suspect mildly worse d/t poor mobility - Given dose of IV Lasix x 2, some improvement in edema noted - Keep elevated - Consider OT eval for lymphedema therapy - Venous Doppler shows no evidence of DVT (2) Right knee pain: X-ray showing severe degenerative changes This is likely contributing to her ambulatory dysfunction Voltaren gel added to be used as needed Could consider knee immobilizer and referral to Ortho; however, at age 89 likely not the best surgical candidate. Would trial conservative management first with the Voltaren gel along with PT/OT (3) UTI (urinary tract infection): - E. coli with sensitivities to all except Ampicillin - Uncomplicated, completed 4 days of Rocephin (4) Buttock wound: - Wounds secondary to excessive moisture - Wound care nurse on board during this hospitalization - Clean area/dry thoroughly, apply powder/ointment as directed by wound care - Would continue wound care upon discharge (5) Left bundle branch block: - ACS ruled out, trops negative - Continue ASA - Uncertain if this is new or old, no previous EKG to compare (6) Primary hypertension: - Currently on Atenolol which was held yesterday morning due to some mild bradycardia (in the 50s). As a result, BP was slightly accelerated -Heart rate has been in the 50s to 60s. Atenolol given without significant change in heart rate. BP currently 152/74 which is acceptable for her age (7) Ambulatory dysfunction: -PT/OT on board during this hospitalization -Likely a result of advanced age and general decline along with severe OA as outlined above PT recommending SNF for rehab. Case management has been on board and there is a bed available today at [facility]. Patient is medically hemodynamically stable for discharge at this time. Follow-up with house physician within 24 to 48 hours Recommend referral to Ortho if pain persistent Recommend continued PT/OT Consider OT for lymphedema management If BP remains elevated, could consider adjustment in medication (at discretion of house physician) Total Time Total Time Spent Total Time Spent (In Minutes): 45 Discharge Plan Discharge Items Patient Disposition: Transfer Longterm Fac Reason For Visit: LOWER EXTREMITY EDEMA, GLUTEAL WOUNDS Discharge Diagnosis: 1. Debility 2. Lymphedema 3. Gluteal Wounds/breakdown 4. Accelerated BP/Labile Blood Pressure Activity: Resume your previous activity Activity Comment: consult PT/OT Non-emergency contact: Primary Care Provider Call non-emergency contact if: you have any medication questions Follow-up/Referrals: Francisca Bellamy MD [Primary Care Provider] - Diet: Regular Addtl Attending Provider Instructions: - Can use voltaren gel to the right knee as needed for pain - recommend referral to ortho is pain persistent - can try knee immobilizer (Severe OA seen on xray-- likely contributing to her gait abnormality) - recommend continued PT/OT (for physical rehab) but also consider OT for lymphedema mgmt - take medications as outlined - BP's labile during this hospitalization-- Recommend addition of antihypertensive medication if remains an issue (at discretion of House Physician). Currently acceptable for age. - follow up with House Physician: 24-48 hour - return to the ED for new or worsening symptoms Pending Studies at Discharge: No Stand-Alone Forms: My [facility] Skilled Items Patient informed of condition?: Yes DNR: No Discharge Level of Care: Skilled Communicable Disease: No Discharge Prognosis: Stable Lines: None Urinary Catheter: No Medications and DC Order Prescriptions: New diclofenac sodium [Voltaren Arthritis Pain] 1 % gel 4 g topical QID PRN (Reason: pain) Qty: 100 RF: 0 Continued atenolol 50 mg tablet 50 mg PO QAM RF: 0 aspirin [Adult Low Dose Aspirin] 81 mg tablet,delayed release (DR/EC) 81 mg PO QAM RF: 0 calcium carbonate [Calcium 500] 500 mg calcium (1,250 mg) tablet 500 mg PO QAM RF: 0 Discharge Orders: Discharge Order (Routine); Ordered 07/23/21 Ordered By: Reina Coleman Admission Data Admit Date/Time: 07/17/21 11:56 Attending Provider: Duglas Amaya Admit Provider: Duglas Amaya Primary Care Provider: Francisca Bellamy Other Providers: Duglas Amaya ; [place],[facility] Other Interventions: Discharge Summary Assessment (RN) Last Done: 07/23/21 16:20 Supervising Physician Co-Signing Physician Notes Patient seen and examined on the day of discharge. I agree with the discharge summary by Reina FELDMAN. I have reviewed the chart including labs, imagin g and plans for discharge. patient doing better, more energy, eating okay, ready for rehab - Lymphedema/edema, lower extremity pain, UTI see above d/c summary for plan, tolerating treatment well, needs more therapy, go to SNF for rehab Coding Level of Care Code D/C DAY MANAGEMENT >30 MINS Diagnoses Lower extremity edema R60.0 UTI (urinary tract infection) N39.0 Buttock wound S31.809A Left bundle branch block I44.7 Primary hypertension I10 Ambulatory dysfunction R26.2 Right knee pain M25.561
== END 2021-07-23 16:58 | DRG 607 ==
LOC: 2W 10:38 → ED 10:38 → SUATTDRO 16:02 → 2W 19:50 → SUATTDRO 07-17 11:56 → 3N 07-19 16:54